=== PATIENT | female | born 1985 | race African-American/Black ===

== ENCOUNTER 2021-12-31 13:23 | Emergency (ER) | payer OTHER, SELFPAY ==
[2021-12-31 13:35] VITALS: BP 135/83; PULSE 72; RESP 22; TEMP 37; O2SAT 100
== END 2021-12-31 14:35 | disposition left against medical advice (07) ==
PROVIDERS: Emergency Provider Emergency Medicine
DX: J02.9 Acute pharyngitis, unspecified (principal)
CPT/HCPCS: 87880; 99281